=== PATIENT | female | born 1965 | race Caucasian/White ===

== ENCOUNTER → 2016-11-15 | Outpatient (CLI) | payer BC ==
--- NOTE | 2016-11-15 15:53 | DIAGNOSTIC IMAGING REPORT ---
TRANSVAG-FEMALE PELVIS CLINICAL HISTORY: 51 years-old Female presenting with EXCESSIVE MENSTRATION,IRREGULAR CYCLE, bleeding between cycles, no history of surgery, negative test. TECHNIQUE: Real-time grayscale and color and spectral Doppler ultrasound imaging of the pelvis was performed first using a transabdominal probe and subsequently transvaginal for better characterization. COMPARISON: None. FINDINGS: Uterus: 2 well-circumscribed hypoechoic masses appear to exophytically arise from the uterus likely representing subserosal fibroids. The larger is located at the posterior fundal region measuring 2.6 x 3.2 x 2.8 cm and the smaller located along the lower uterine wall posteriorly measuring 1.5 x 1.5 x 2.0 cm. Anteverted. The uterus measures 7.2 x 3.2 cm. Endometrial stripe measures 15 mm in thickness. Endometrium normal-appearing. Cervix contains nabothian cysts. Right adnexa: Right ovary contains an ovoid simple anechoic lesion measuring 1.3 x 1.7 x 1.8 cm, likely a prominent follicle. Right ovary measures 3.0 x 2.1 x 2.5 cm. Normal color Doppler flow and arterial and venous waveforms within the ovarian parenchyma. Left adnexa: Left ovary normal. Left ovary measures 2.8 x 1.3 x 2.1 cm. Normal color Doppler flow and arterial and venous waveforms within the ovarian parenchyma. Other: No free fluid. IMPRESSION: Endometrial thickening measuring 15 mm. In the premenopausal or perimenopausal setting, this degree of endometrial thickness is normal. In the postmenopausal setting, further evaluation such as endometrial biopsy should be obtained. Uterine fibroids suspected. Likely prominent right ovarian follicle. No ovarian torsion. Electronically signed by: Lukasz Anguiano M.D. 11/15/2016 3:51 PM Dictated Date/Time: 11/15/2016 3:46 PM
== END | disposition home or self-care (01) ==
LOC: C.ULTR 15:04
PROVIDERS: ATTEND Family Medicine
DX: N92.1 Excessive and frequent menstruation with irregular cycle (principal); N95.9 Unspecified menopausal and perimenopausal disorder

== ENCOUNTER → 2016-12-01 | Outpatient (CLI) | payer BC ==
--- NOTE | 2016-12-04 13:09 | MAMMOGRAPHY REPORT ---
BILATERAL DIGITAL SCREENING MAMMOGRAM TOMOSYNTHESIS WITH CAD: 12/01/2016 CLINICAL HISTORY: Routine screening. Patient has no complaints. TECHNIQUE: Breast tomosynthesis in addition to standard 2D mammography was performed. Current study was also evaluated with a Computer Aided Detection (CAD) system. COMPARISON: Comparison is made to exams dated: 11/18/2015 mammogram - [facility] [address], 08/23/2013 mammogram, and 11/09/2009 mammogram. BREAST COMPOSITION: The tissue of both breasts is heterogeneously dense, which may obscure small mas ses. FINDINGS: There is a lobulated 6 mm mass within the right medial breast at approximately 3:00, best seen on the tomosynthesis images, for which ultrasound and possible additional spot compression views are recommended for further evaluation. This may represent a cyst. The remainder of both breasts are stable compared to prior exams, without suspicious masses, calcific ations, or areas of architectural distortion noted. Scattered bilateral benign-appearing calcificati ons are again noted. IMPRESSION: ACR BI-RADS CATEGORY 0: INCOMPLETE EVALUATION: NEED ADDITIONAL IMAGING EVALUATION Right breast mass, for which additional imaging evaluation is recommended. The patient will be cheung d to schedule an appointment. Approximately 10% of breast cancers are not detected with mammography. A negative mammographic report should not delay biopsy if a clinically suggestive mass is present. Brynn Clement M.D. ah/:12/01/2016 16:29:04 Vice President Of News: Gillian CHAVEZ)(John), [facility] [address] letter sent: Addl Imaging 0 BI-RADS Code: ACR BI-RADS Category 0: Incomplete Evaluation: Need Additional Imaging Evaluation
== END | disposition home or self-care (01) ==
LOC: C.MAMM 14:58
PROVIDERS: ATTEND Family Medicine
DX: Z12.31 Encounter for screening mammogram for malignant neoplasm of breast (principal); N63 Unspecified lump in breast

== ENCOUNTER → 2016-12-13 | Outpatient (CLI) | payer BC ==
--- NOTE | 2016-12-14 12:29 | MAMMOGRAPHY REPORT ---
ULTRASOUND OF BOTH BREASTS: 12/13/2016 CLINICAL HISTORY: 51-year-old woman called back from screening mammography for a lobulated 6 mm mass in the medial right breast. No family history of breast cancer. COMPARISON: Comparison is made to exams dated: 12/01/2016 mammogram, 11/18/2015 mammogram - [facility], 08/23/2013 mammogram, and 11/09/2009 mammogram. FINDINGS: Targeted ultrasound was performed in the medial right breast with particular attention to the 2:00 through 4:00 axes. And 3:00 axis, 2 cm from the nipple, there is a multiloculated hypoechoi c to anechoic cystic appearing mass measuring 4.5 x 3.7 x 4.9 mm. This mass appears more clearly cys tic in the radial plane. The size, shape and location correlate well with the newly visualized mammo graphic mass and it is most likely benign representing a cyst or cyst cluster. However, given that t he sonographic characteristics do not clearly represent a simple cyst, a short interval follow-up rig ht diagnostic mammogram and repeat targeted ultrasound is recommended to ensure stability in 6 months . IMPRESSION: ACR-BI-RADS CATEGORY 3: PROBABLY BENIGN - FOLLOW-UP RECOMMENDED The lobulated 6 mm mammographic mass in the 3:00 right breast correlates with a probable lobulated cy st on ultrasound. Given that the sonographic characteristics do not clearly represent a simple cyst, a short interval follow-up right diagnostic mammogram and repeat targeted ultrasound is recommended to ensure stability in 6 months. These results and recommendations were discussed with the patient at the time of the exam. She tenta tively scheduled a follow-up appointment prior to leaving our department. Chrissie Merino M.D. ay/:12/13/2016 16:13:32 Attending Technologist: Hema ENRIQUE(R)(M), [facility] Cashier And Salesperson: Dr. Chrissie Merino, [facility] letter sent: Follow Up Recommended 3 BI-RADS Code: ACR-BI-RADS Category 3: Probably Benign
== END | disposition home or self-care (01) ==
LOC: C.MAMM 15:51
PROVIDERS: ATTEND Family Medicine
DX: N63 Unspecified lump in breast (principal)

== ENCOUNTER → 2017-07-09 | Outpatient (CLI) | payer OTHER ==
--- NOTE | 2017-07-10 07:40 | MAMMOGRAPHY REPORT ---
UNILATERAL RIGHT DIGITAL DIAGNOSTIC MAMMOGRAM TOMOSYNTHESIS WITH CAD AND TARGETED RIGHT ULTRASOUND: CLINICAL HISTORY: 51-year-old woman presents for follow-up in the right breast of a probable complica bobby cyst in the 3:00 axis seen both mammographically and on ultrasound. Patient reports 30 pound olga ght loss since prior diagnostic evaluation. TECHNIQUE: Right breast tomosynthesis in addition to standard 2D mammography was performed. Current hui uriarte was also evaluated with a Computer Aided Detection (CAD) system. COMPARISON: Comparison is made to exams dated: 12/13/2016 ultrasound, 12/01/2016 mammogram, 11/18/2015 [facility], 08/23/2013 mammogram, and 11/09/2009 mammogram. BREAST COMPOSITION: The tissue of the right breast is heterogeneously dense, which may obscure small masses. FINDINGS: The previously observed lobulated mass in the 3:00 middle one third of the right breast has decreased in size comparing to the prior mammogram. It currently measures 3.5 x 4.5 mm, previously 4.7 x 5.6 mm. Other new no suspicious mass, architectural distortion or cluster of microcalcification s is seen in the right breast. There are a few stable punctate microcalcifications in the lateral ri ght breast. Targeted ultrasound was performed in the 3:00 right breast. In the 3:00 axis, 2 cm from the nipple, there is a lobulated dominantly anechoic circumscribed mass measuring approximately 4.2 x 2.0 x 2.7 m m, which has decreased in size comparing to the prior ultrasound at which time it measured 4.5 x 3.7 x 4.9 mm. IMPRESSION: ACR BI-RADS CATEGORY 2: BENIGN, TARGETED ULTRASOUND ACR BI-RADS CATEGORY 2: BENIGN The lobulated and circumscribed mass in the 3:00 middle one third of the right breast has decreased i n size both mammographically and on ultrasound, confirming a benign fluctuating cyst. There is no ma mmographic or targeted sonographic evidence of malignancy in the right breast. Return to annual mammo gram screening schedule is recommended. The patient has been verbally notified of the results. Approximately 10% of breast cancers are not detected with mammography. A negative mammographic report should not delay biopsy if a clinically suggestive mass is present. Chrissie Merino M.D. ay/:07/09/2017 14:46:36 Mobile Phlebotomist: Isatu CHAVEZ)(John), [facility] letter sent: Normal 1/2 BI-RADS Code: ACR BI-RADS Category 2: Benign Ultrasound BI-RADS: ACR BI-RADS Category 2: Benign
== END | disposition home or self-care (01) ==
LOC: C.MAMM 13:50
PROVIDERS: ATTEND Family Medicine
DX: N60.01 Solitary cyst of right breast (principal)